=== PATIENT | female | born 1995 | race Caucasian/White ===

== ENCOUNTER 2023-11-06 19:48 | Inpatient (IN) | payer BC ==
[2023-11-06 20:13] VITALS: BMI 31.7
[2023-11-06] MEDS: hydrALAZINE 20 MG/ML VIAL SLOW IVP PRN (20:36)
[2023-11-06 20:57] LABS: #Basophils 0.04 10x3/uL (0.0-0.2); #Eosinphils 0.14 10x3/uL (0.0-0.5); #Monocytes 0.83 10x3/uL (0.0-1.1); #Neutrophils 7.01 10x3/uL (1.5-8.4); %Basophils 0.4 % (0.0-2.0); %Eosinophils 1.4 % (0.0-6.0); %Lymphocytes 21.7 % (18.0-47.0); %Neutrophils 67.7 % (40.0-75.0); Hematocrit 34.7 % (34.9-44.5); Hemoglobin 12.4 g/dL (12.0-15.5); Mean Corpuscular HGB CONC 35.7 g/dL (32.0-36.0); Mean Corpuscular Hemoglobin 30.8 pg (27.0-33.0); Mean Corpuscular Volume 86.1 fL (81.6-98.3); Mean Platelet Volume 11.7 fL (7.4-10.4); Platelet Count 187 10x3/uL (150-450); RBC Distribution Width 13.2 % (11.5-14.5); Red Blood Cell (RBC) Count 4.03 10x6/uL (3.90-5.03); White Blood Cell (WBC) Count 10.4 10x3/uL (3.5-10.5)
[2023-11-06 21:04] LABS: ALT (SGPT) 24 U/L (8-55); AST (SGOT) 29 U/L (5-34); Albumin 2.8 g/dL (3.5-5.0); Alkaline Phosphatase 168 U/L (40-110); Anion Gap 16 mmol/L (10-20); BUN (Urea Nitrogen) 8 mg/dL (7.0-18.7); Bilirubin, Total 0.2 mg/dL (0.2-1.2); Calc. Creatinine Clearance 182 mL/min (70-130); Calcium 9.4 mg/dL (7.8-10.44); Carbon Dioxide 18 mmol/L (22-29); Chloride 107 mmol/L (98-107); Estimated GFR 119; Globulin 3.5 g/dL (2.4-3.5); Glucose 98 mg/dL (70-105); Potassium 3.9 mmol/L (3.5-5.1); Protein, Total 6.3 g/dL (6.0-8.3); Sodium 137 mmol/L (136-145)
[2023-11-06] MEDS: Labetalol HCl 100 MG TAB PO SCH (21:22)
[2023-11-06 21:29] LABS: Creatinine, Urine 88.31 mg/dL (47-110)
[2023-11-06] MEDS ORDERED: Magnesium Sulfate 20 gm/500 ml 20 GM/500 ML BAG ONE (21:38)
[2023-11-06] MEDS ORDERED: Labetalol HCl 100 MG/20 ML VIAL SLOW IVP PRN (21:39)
[2023-11-06] MEDS ORDERED: NIFEdipine 10 MG CAP PO PRN ×2 (21:39)
[2023-11-06] MEDS ORDERED: Promethazine HCl 25 MG/ML VIAL IM PRN (21:39)
[2023-11-06] MEDS ORDERED: Zolpidem Tartrate 5 MG TAB PO PRN (21:39)
[2023-11-06] MEDS ORDERED: Calcium Gluc 4.6 MEQ/10 ML (100 MG/ML) SLOW IVP PRN (21:39)
[2023-11-06] MEDS ORDERED: Ondansetron PF 4 MG/2 ML Vial IVP PRN (21:39)
[2023-11-06] MEDS ORDERED: Docusate 100 MG CAP PO PRN (21:39)
[2023-11-06] MEDS ORDERED: fentaNYL 50 mcg/mL 1 mL Vial SLOW IVP PRN (21:39)
[2023-11-06] MEDS ORDERED: Lorazepam 2 MG/ML VIAL SLOW IVP PRN (21:39)
[2023-11-06] MEDS ORDERED: Lidocaine 1% (PF) 30 ML VIAL SC PRN (21:39)
[2023-11-06] MEDS ORDERED: Oxytocin 30 units/NS 500 ML 500 ML IV SCH (21:45)
[2023-11-06] MEDS ORDERED: Penicillin G Potassium 5 MILL.UNITS in Sodium Chloride 0.9% 100 ML IVPB SCH (21:45)
[2023-11-06 22:41] LABS: HBsAg Index 0.16 S/CO (0-0.99); Hep B Surf Ag - L&D Non-Reactive S/CO (NonReactive)
[2023-11-06 22:42] LABS: Syphilis Antibody Nonreactive (Nonreactive); Syphilis Antibody Index 0.05 S/CO (<1.00 Non-Reactive)
[2023-11-06] MEDS: Ondansetron ODT 4 MG TAB SL PRN (23:02)
[2023-11-06] MEDS: Betamet Acet/Betamet Na Ph 30 MG/5 ML VIAL IM SCH (23:13)
[2023-11-07] MEDS ORDERED: Penicillin G 2.5 MILL.units 2.5 MILL.UNITS in Premix 1 BAG IVPB SCH (01:00)
[2023-11-07] MEDS: Acetaminophen 500 MG TAB PO PRN (03:10)
[2023-11-07] MEDS: Magnesium Sulfate 20 gm/500 ml 20 GM/500 ML BAG IVPB SCH (06:29)
[2023-11-07] MEDS ORDERED: Labetalol HCl 200 MG TAB PO SCH (09:00)
[2023-11-07] MEDS: Labetalol HCl 200 MG TAB PO SCH (09:04)
[2023-11-07] MEDS: Aspirin 81 mg Enteric Coated Tablet PO SCH (09:21)
[2023-11-07] MEDS: Famotidine 20 MG TAB PO SCH (20:02)
[2023-11-08 09:08] VITALS: BP 133/77
[2023-11-08 11:24] LABS: Protein, Urine 17 mg/dL (1-14)
[2023-11-08 11:57] LABS: Protein - 24 Hr 765 mg/24 hr (Less than 300); Urine Total Volume 4500 mL (600-1600)
== END 2023-11-08 13:51 | disposition home health service (06) | DRG 833 ==
LOC: CSHLD/OP 19:48 → CSHLD 21:39 → OBSVTOIN 21:40 → UNDOADMOB 11-07 00:28 → CSHLD 11-07 00:28
PROVIDERS: ADMIT Obstetrics & Gynecology; ATTEND Obstetrics & Gynecology
DX: O14.03 Mild to moderate pre-eclampsia, third trimester (principal); Z3A.33 33 weeks gestation of pregnancy
CPT/HCPCS: 36415; 76815; 80053; 82570; 84156; 84550; 85025; 86780; 86850; 86900; 86901; 87340; 99285; J0360; J0702; J3475; Q0162